=== PATIENT | male | born 1930 | race Caucasian/White ===

== ENCOUNTER 2017-03-26 09:32 | Inpatient (IN) | payer MEDICARE, OTHER ==
[2017-03-26] MEDS: AZITHROMYCIN 500MG/NS (PMX) 250 ML IV (10:58)
[2017-03-26] MEDS: METHYLPREDNISOLONE 125 MG INJ IV ×2 (10:58→17:45)
[2017-03-26] MEDS: IPRATROPIUM (NEB) 0.5 MG/2.5 ML AMP INH (11:17)
[2017-03-26] MEDS: ALBUTEROL 0.083% (NEB) 2.5 MG/3 ML AMP HHN (11:17)
[2017-03-26 11:24] LABS: ADD MAN DIFF? NO
[2017-03-26 11:37] LABS: ABNORMAL IP MESSAGE 1; BASOPHILS % 0.1 % (0.0-2.0); EOSINOPHILS % 0.2 % (0.0-7.0); HEMATOCRIT 37.1 % (42.0-52.0); LYMPHOCYTES # 1.9 10^3/ul (0.8-2.9); LYMPHOCYTES % 11.7 % (15.0-51.0); MEAN CORPUSCULAR HEMOGLOBIN 31.9 pg (29.0-33.0); MEAN CORPUSCULAR HGB CONC 32.3 g/dl (32.0-37.0); MEAN CORPUSCULAR VOLUME 98.7 fl (82.0-101.0); MEAN PLATELET VOLUME 13.3 fl (7.4-10.4); MONOCYTE # 1.2 10^3/ul (0.3-0.9); MONOCYTES % 7.1 % (0.0-11.0); NEUTROPHIL # 13.2 10^3/ul (1.6-7.5); NEUTROPHILS % 80.2 % (39.0-77.0); PLATELET COUNT 92 10^3/UL (140-415); POSITIVE DIFF @See below; RED BLOOD COUNT 3.76 10^6/ul (4.70-6.10); RED CELL DISTRIBUTION WIDTH 13.2 % (11.5-14.5)
[2017-03-26 11:37] LABS: WHITE BLOOD COUNT 16.5 10^3/ul (4.8-10.8)
[2017-03-26 11:51] LABS: LACTIC ACID 1.2 mmol/L (0.5-2.0)
[2017-03-26 11:54] LABS: ANION GAP 16 (8-16); BLOOD UREA NITROGEN 56 mg/dl (7-20); CALCIUM 8.9 mg/dl (8.4-10.2); CARBON DIOXIDE 30 mmol/L (21-31); CHLORIDE 101 mmol/L (97-110); CREATININE 1.78 mg/dl (0.61-1.24); GLUCOSE 215 mg/dl (70-220); POTASSIUM 4.8 mmol/L (3.5-5.1); SODIUM 142 mmol/L (135-144)
[2017-03-26] MEDS ORDERED: ONDANSETRON 4 MG INJ IV ×2 (13:00→14:00)
[2017-03-26] MEDS ORDERED: ACETAMINOPHEN 325 MG TAB PO ×2 (13:00→14:00)
[2017-03-26 13:53] LABS: LACTIC ACID 0.9 mmol/L (0.5-2.0)
[2017-03-26] MEDS ORDERED: GLUCOSE GEL 15 GRAM TUBE BUCCAL (14:00)
[2017-03-26] MEDS ORDERED: DEXTROSE 50% 50 ML SYRINGE IV ×2 (14:00)
[2017-03-26] MEDS: ALBUTEROL/IPRATROPIUM (NEB) 3 ML AMP HHN ×3 (14:00→22:52)
[2017-03-26] MEDS ORDERED: NACL 0.9% 3 ML SYG IV (14:00)
[2017-03-26] MEDS ORDERED: HYDROCODONE/APAP (5/325) TAB PO (14:00)
[2017-03-26] MEDS ORDERED: GLUCOSE GEL 15 GRAM TUBE PO ×2 (14:00)
[2017-03-26] MEDS ORDERED: LORAZEPAM 0.5 MG TAB PO (14:00)
[2017-03-26] MEDS ORDERED: morphine 2 MG INJ IV (14:00)
[2017-03-26] MEDS ORDERED: GLUCAGON 1 MG INJ IM (14:00)
[2017-03-26] MEDS: OSELTAMIVIR 75 MG CAP PO ×2 (14:00→20:36)
[2017-03-26 14:47] LABS: B-TYPE NATRIURETIC PEPTIDE 1080 PG/ML (0-450)
[2017-03-26] MEDS: FUROSEMIDE 40 MG INJ IV (15:22)
[2017-03-26 15:26] LABS: LACTIC ACID 1.2 mmol/L (0.5-2.0)
[2017-03-26] MEDS: GUAIFENESIN/CODEINE 5ML CUP PO (15:26)
[2017-03-26] MEDS: [UNRECOGNIZED DRUG - OTHER] IM* (16:30)
[2017-03-26] MEDS: FUROSEMIDE 40 MG TAB PO (17:45)
[2017-03-26] MEDS: INSULIN ASPART [NOVOLOG] 3 ML PEN SC ×3 (17:50→22:26)
[2017-03-26] MEDS: INFLUENZA VIRUS VACCINE 0.5 ML SYG IM* (18:46)
[2017-03-26 19:49] LABS: CREATINE KINASE 106 IU/L (23-200)
[2017-03-26 20:03] LABS: CK INDEX 1.4; CK-MB 1.52 ng/ml (0.0-2.4); TROPONIN-I 0.022 ng/ml (0.00-0.12)
[2017-03-26] MEDS: BRIMONIDINE 0.2%-TIMOLOL 0.5% 5ML OPH BOTH EYES (20:35)
[2017-03-26] MEDS: DORZOLAMIDE/TIMOLOL 10 ML OPH BOTH EYES (20:36)
[2017-03-26] MEDS: ATORVASTATIN 40 MG TAB PO (20:36)
[2017-03-26] MEDS: INSULIN GLARGINE [LANtus] 3 ML PEN SC (20:49)
[2017-03-26] MEDS: LATANOPROST 0.005% 2.5 ML OPH BOTH EYES (21:48)
[2017-03-27 01:20] LABS: CREATINE KINASE 88 IU/L (23-200)
[2017-03-27 01:33] LABS: CK INDEX 1.7; TROPONIN-I 0.034 ng/ml (0.00-0.12)
[2017-03-27 01:34] LABS: CK-MB 1.53 ng/ml (0.0-2.4)
[2017-03-27] MEDS: METHYLPREDNISOLONE 125 MG INJ IV ×2 (02:36→08:26)
[2017-03-27] MEDS: ACCU-CHEK XX (02:38)
[2017-03-27] MEDS: hydrALAzine 20 MG INJ IV (03:26)
[2017-03-27 06:20] LABS: ADD MAN DIFF? NO
[2017-03-27] MEDS: GUAIFENESIN/CODEINE 5ML CUP PO ×2 (06:21→11:58)
[2017-03-27] MEDS: FUROSEMIDE 40 MG TAB PO (06:24)
[2017-03-27 06:25] LABS: ABNORMAL IP MESSAGE 1; BASOPHILS % 0.2 % (0.0-2.0); HEMATOCRIT 39.3 % (42.0-52.0); HEMOGLOBIN 12.7 g/dl (14.0-18.0); LYMPHOCYTES # 1.7 10^3/ul (0.8-2.9); LYMPHOCYTES % 9.2 % (15.0-51.0); MEAN CORPUSCULAR HEMOGLOBIN 31.9 pg (29.0-33.0); MEAN CORPUSCULAR HGB CONC 32.3 g/dl (32.0-37.0); MEAN CORPUSCULAR VOLUME 98.7 fl (82.0-101.0); MEAN PLATELET VOLUME 13.8 fl (7.4-10.4); MONOCYTE # 0.5 10^3/ul (0.3-0.9); MONOCYTES % 2.9 % (0.0-11.0); NEUTROPHIL # 16.2 10^3/ul (1.6-7.5); NEUTROPHILS % 86.8 % (39.0-77.0); PLATELET COUNT 116 10^3/UL (140-415); POSITIVE DIFF @See below; RED BLOOD COUNT 3.98 10^6/ul (4.70-6.10); RED CELL DISTRIBUTION WIDTH 13.2 % (11.5-14.5)
[2017-03-27 06:25] LABS: WHITE BLOOD COUNT 18.7 10^3/ul (4.8-10.8)
[2017-03-27 07:11] LABS: CREATINE KINASE 81 IU/L (23-200)
[2017-03-27 07:17] LABS: CK INDEX 2.5; TROPONIN-I 0.034 ng/ml (0.00-0.12)
[2017-03-27 07:18] LABS: ALANINE AMINOTRANSFERASE 35 IU/L (13-69); ALBUMIN 4.2 g/dl (3.3-4.9); ALBUMIN/GLOBULIN RATIO 1.05; ALKALINE PHOSPHATASE 27 IU/L (42-121); ANION GAP 20 (8-16); ASPARTATE AMINO TRANSFERASE 40 IU/L (15-46); BILIRUBIN,INDIRECT 0.7 mg/dl (0-1.1); BILIRUBIN,TOTAL 0.7 mg/dl (0.2-1.3); BLOOD UREA NITROGEN 65 mg/dl (7-20); CALCIUM 9.3 mg/dl (8.4-10.2); CARBON DIOXIDE 31 mmol/L (21-31); CHLORIDE 101 mmol/L (97-110); CHOL/HDL RATIO 5.5 RATIO; CHOLESTEROL 132 mg/dl (100-200); CREATININE 2.14 mg/dl (0.61-1.24); GLUCOSE 219 mg/dl (70-220); HDL CHOLESTEROL 24 mg/dl (31-75); LDL CHOLESTEROL,CALCULATED 93 mg/dl; MAGNESIUM 2.8 mg/dl (1.7-2.5); SODIUM 147 mmol/L (135-144); TOTAL PROTEIN 8.2 g/dl (6.1-8.1); TRIGLYCERIDES 75 mg/dl (0-149)
[2017-03-27 07:22] LABS: CK-MB 2.03 ng/ml (0.0-2.4)
[2017-03-27] MEDS: ALBUTEROL/IPRATROPIUM (NEB) 3 ML AMP HHN ×3 (07:48→19:36)
[2017-03-27 08:00] LABS: PHOSPHORUS 3.5 mg/dl (2.5-4.9)
[2017-03-27 08:14] LABS: THYROID STIMULATING HORMONE 0.352 MIU/L (0.465-4.680)
[2017-03-27] MEDS: SPIRONOLACTONE 25 MG TAB PO (08:27)
[2017-03-27] MEDS: BRIMONIDINE 0.2%-TIMOLOL 0.5% 5ML OPH BOTH EYES ×2 (08:27→21:40)
[2017-03-27] MEDS: DORZOLAMIDE/TIMOLOL 10 ML OPH BOTH EYES ×2 (08:27→21:41)
[2017-03-27] MEDS: OSELTAMIVIR 75 MG CAP PO ×2 (08:27→21:39)
[2017-03-27] MEDS: ASPIRIN (EC) 81 MG TAB PO (08:27)
[2017-03-27] MEDS ORDERED: FUROSEMIDE 40 MG TAB PO (09:00)
[2017-03-27] MEDS ORDERED: AMLODIPINE 5 MG TAB PO (09:00)
[2017-03-27] MEDS: INSULIN ASPART [NOVOLOG] 3 ML PEN SC ×7 (09:36→22:04)
[2017-03-27] MEDS: AZITHROMYCIN 500MG/NS (PMX) 250 ML IVPB (15:25)
[2017-03-27] MEDS: METHYLPREDNISOLONE 40 MG INJ IV ×2 (15:25→21:45)
[2017-03-27] MEDS: FUROSEMIDE 40 MG INJ IV (19:17)
[2017-03-27] MEDS: BISACODYL (EC) 5 MG TAB PO (21:39)
[2017-03-27] MEDS: ATORVASTATIN 40 MG TAB PO (21:39)
[2017-03-27] MEDS: LATANOPROST 0.005% 2.5 ML OPH BOTH EYES (21:41)
[2017-03-27] MEDS: INSULIN GLARGINE [LANtus] 3 ML PEN SC (22:04)
[2017-03-28] MEDS: ACCU-CHEK XX ×2 (01:58→14:30)
[2017-03-28] MEDS: METHYLPREDNISOLONE 40 MG INJ IV (06:22)
[2017-03-28] MEDS: FUROSEMIDE 40 MG INJ IV (06:25)
[2017-03-28 06:30] LABS: ABNORMAL IP MESSAGE 1; HEMATOCRIT 36.4 % (42.0-52.0); HEMOGLOBIN 11.9 g/dl (14.0-18.0); MEAN CORPUSCULAR HEMOGLOBIN 32.2 pg (29.0-33.0); MEAN CORPUSCULAR HGB CONC 32.7 g/dl (32.0-37.0); MEAN CORPUSCULAR VOLUME 98.6 fl (82.0-101.0); MEAN PLATELET VOLUME 13.8 fl (7.4-10.4); PLATELET COUNT 127 10^3/UL (140-415); POSITIVE DIFF @See below; RED BLOOD COUNT 3.69 10^6/ul (4.70-6.10); RED CELL DISTRIBUTION WIDTH 13.2 % (11.5-14.5)
[2017-03-28 06:30] LABS: WHITE BLOOD COUNT 29.5 10^3/ul (4.8-10.8)
[2017-03-28 07:12] LABS: ADD MAN DIFF? YES
[2017-03-28 07:20] LABS: ANION GAP 18 (8-16)
[2017-03-28 07:41] LABS: BLOOD UREA NITROGEN 83 mg/dl (7-20); CALCIUM 9.1 mg/dl (8.4-10.2); CARBON DIOXIDE 29 mmol/L (21-31); CHLORIDE 102 mmol/L (97-110); CREATININE 2.24 mg/dl (0.61-1.24); GLUCOSE 204 mg/dl (70-220); MAGNESIUM 2.7 mg/dl (1.7-2.5); PHOSPHORUS 5.4 mg/dl (2.5-4.9); POTASSIUM 4.6 mmol/L (3.5-5.1); SODIUM 144 mmol/L (135-144)
[2017-03-28] MEDS: ALBUTEROL/IPRATROPIUM (NEB) 3 ML AMP HHN ×3 (08:08→20:38)
[2017-03-28] MEDS: ASPIRIN (EC) 81 MG TAB PO (08:16)
[2017-03-28] MEDS: DORZOLAMIDE/TIMOLOL 10 ML OPH BOTH EYES ×2 (08:16→21:10)
[2017-03-28] MEDS: BRIMONIDINE 0.2%-TIMOLOL 0.5% 5ML OPH BOTH EYES ×2 (08:16→21:10)
[2017-03-28] MEDS: OSELTAMIVIR 75 MG CAP PO ×2 (08:16→08:23)
[2017-03-28] MEDS: SPIRONOLACTONE 25 MG TAB PO (08:16)
[2017-03-28] MEDS: INSULIN ASPART [NOVOLOG] 3 ML PEN SC ×8 (08:20→21:00)
[2017-03-28] MEDS ORDERED: INSULIN ASPART [NOVOLOG] 3 ML PEN SC ×4 (12:15→18:00)
[2017-03-28 12:53] LABS: GLUCOSE 569 mg/dl (70-220)
[2017-03-28] MEDS ORDERED: DEXTROSE 50% 50 ML SYRINGE IV ×2 (14:30)
[2017-03-28] MEDS ORDERED: INSULIN HUMAN REGULAR 100 UNIT in SOD CHLORIDE 0.9% 99 ML IV (14:30)
[2017-03-28] MEDS: Insulin NOVOLOG SS MODERATE Algorithm(NPO/TPN/ENTERAL FEEDS) SC (15:12)
[2017-03-28] MEDS: LINAGLIPTIN 5 MG TABLET PO (15:43)
[2017-03-28] MEDS: predniSONE 20 MG TAB PO (15:43)
[2017-03-28] MEDS: NITROGLYCERIN (SL) 0.4 MG TAB SL (15:44)
[2017-03-28] MEDS ORDERED: LINAGLIPTIN 5 MG TABLET PO (16:00)
[2017-03-28 17:11] LABS: TROPONIN-I 0.018 ng/ml (0.00-0.12)
[2017-03-28] MEDS: PIPER-TAZO 3.375 GM IV (PMX) 50 ML IVPB ×2 (17:31→22:08)
[2017-03-28] MEDS ORDERED: INSULIN GLARGINE [LANtus] 3 ML PEN SC (20:00)
[2017-03-28] MEDS ORDERED: METHYLPREDNISOLONE 40 MG INJ IV (21:00)
[2017-03-28] MEDS: BISACODYL (EC) 5 MG TAB PO (21:09)
[2017-03-28] MEDS: ATORVASTATIN 40 MG TAB PO (21:09)
[2017-03-28] MEDS: LATANOPROST 0.005% 2.5 ML OPH BOTH EYES (21:10)
[2017-03-28] MEDS: INSULIN GLARGINE [LANtus] 3 ML PEN SC (21:18)
[2017-03-29 00:03] LABS: ADD UMIC NO; UR ASCORBIC ACID NEGATIVE (NEGATIVE); UR BILIRUBIN (Dip) NEGATIVE (NEGATIVE); UR BLOOD (Dip) NEGATIVE (NEGATIVE); UR CLARITY CLEAR (CLEAR); UR COLOR YELLOW (YELLOW); UR GLUCOSE (Dip) 1+ mg/dL (NEGATIVE); UR KETONES (Dip) NEGATIVE (NEGATIVE); UR LEUKOCYTE ESTERASE (Dip) NEGATIVE Leu/ul (NEGATIVE); UR NITRITE (Dip) NEGATIVE (NEGATIVE); UR SPECIFIC GRAVITY (Dip) 1.017 (1.003-1.030); UR TOTAL PROTEIN (Dip) NEGATIVE (NEGATIVE); UR UROBILINOGEN (Dip) NEGATIVE (NEGATIVE)
[2017-03-29] MEDS: ACCU-CHEK XX (01:56)
[2017-03-29] MEDS ORDERED: ACCU-CHEK XX (02:00)
[2017-03-29 06:04] LABS: ABNORMAL IP MESSAGE 1; HEMATOCRIT 36.4 % (42.0-52.0); HEMOGLOBIN 11.9 g/dl (14.0-18.0); MEAN CORPUSCULAR HEMOGLOBIN 32.2 pg (29.0-33.0); MEAN CORPUSCULAR HGB CONC 32.7 g/dl (32.0-37.0); MEAN CORPUSCULAR VOLUME 98.4 fl (82.0-101.0); MEAN PLATELET VOLUME 13.7 fl (7.4-10.4); PLATELET COUNT 143 10^3/UL (140-415); POSITIVE DIFF @See below; RED CELL DISTRIBUTION WIDTH 13.2 % (11.5-14.5)
[2017-03-29 06:04] LABS: WHITE BLOOD COUNT 30.3 10^3/ul (4.8-10.8)
[2017-03-29] MEDS: PIPER-TAZO 3.375 GM IV (PMX) 50 ML IVPB ×3 (06:07→21:07)
[2017-03-29 06:15] LABS: ADD MAN DIFF? YES
[2017-03-29 06:18] LABS: TROPONIN-I 0.018 ng/ml (0.00-0.12)
[2017-03-29 06:23] LABS: ANION GAP 18 (8-16); BLOOD UREA NITROGEN 88 mg/dl (7-20); CALCIUM 8.8 mg/dl (8.4-10.2); CARBON DIOXIDE 29 mmol/L (21-31); CHLORIDE 102 mmol/L (97-110); CREATININE 2.24 mg/dl (0.61-1.24); GLUCOSE 109 mg/dl (70-220); MAGNESIUM 2.6 mg/dl (1.7-2.5); PHOSPHORUS 4.3 mg/dl (2.5-4.9); POTASSIUM 4.7 mmol/L (3.5-5.1); SODIUM 144 mmol/L (135-144)
[2017-03-29] MEDS: ALBUTEROL/IPRATROPIUM (NEB) 3 ML AMP HHN ×3 (07:44→20:38)
[2017-03-29] MEDS: LINAGLIPTIN 5 MG TABLET PO (08:15)
[2017-03-29] MEDS: INSULIN ASPART [NOVOLOG] 3 ML PEN SC ×8 (08:15→21:15)
[2017-03-29] MEDS: DORZOLAMIDE/TIMOLOL 10 ML OPH BOTH EYES ×2 (08:15→21:08)
[2017-03-29] MEDS: ASPIRIN (EC) 81 MG TAB PO (08:16)
[2017-03-29] MEDS: predniSONE 20 MG TAB PO (08:16)
[2017-03-29] MEDS: BRIMONIDINE 0.2%-TIMOLOL 0.5% 5ML OPH BOTH EYES ×2 (08:16→21:08)
[2017-03-29 10:47] LABS: BAND NEUTROPHILS % (M) 10 % (0-4); GIANT THROMBO% (M) 2 % (0-0); LYMPHOCYTES #M 0.3 10^3/ul (0.8-2.9); LYMPHOCYTES % (M) 1 % (15-51); MONOCYTE #M 1.8 10^3/ul (0.3-0.9); MONOCYTES % (M) 6 % (0-11); PLATELET ESTIMATE DECREASED; POLYCHROMASIA 1+ (0-0); REACTIVE LYMPHOCYTES #M 1.5 10^3/ul (0.0-0.0); REACTIVE LYMPHOCYTES% (M) 5 % (0-0); SEG NEUT #M 24.5 10^3/ul (1.7-7.5); SEGMENTED NEUTROPHILS (M) % 78 % (39-77)
[2017-03-29] MEDS: LATANOPROST 0.005% 2.5 ML OPH BOTH EYES (21:08)
[2017-03-29] MEDS: INSULIN GLARGINE [LANtus] 3 ML PEN SC (21:10)
[2017-03-29] MEDS: ATORVASTATIN 40 MG TAB PO (21:12)
[2017-03-30] MEDS: ACCU-CHEK XX (01:56)
[2017-03-30 05:37] LABS: ADD MAN DIFF? NO
[2017-03-30 05:45] LABS: WHITE BLOOD COUNT 20.9 10^3/ul (4.8-10.8)
[2017-03-30 05:45] LABS: ABNORMAL IP MESSAGE 1; BASOPHIL # 0.1 10^3/ul (0.0-0.1); BASOPHILS % 0.2 % (0.0-2.0); HEMATOCRIT 38.9 % (42.0-52.0); HEMOGLOBIN 12.6 g/dl (14.0-18.0); LYMPHOCYTES # 2.1 10^3/ul (0.8-2.9); LYMPHOCYTES % 10.1 % (15.0-51.0); MEAN CORPUSCULAR HGB CONC 32.4 g/dl (32.0-37.0); MEAN CORPUSCULAR VOLUME 98.7 fl (82.0-101.0); MEAN PLATELET VOLUME 13.4 fl (7.4-10.4); MONOCYTE # 1.8 10^3/ul (0.3-0.9); MONOCYTES % 8.5 % (0.0-11.0); NEUTROPHIL # 16.2 10^3/ul (1.6-7.5); NEUTROPHILS % 77.9 % (39.0-77.0); PLATELET COUNT 142 10^3/UL (140-415); POSITIVE DIFF @See below; RED BLOOD COUNT 3.94 10^6/ul (4.70-6.10); RED CELL DISTRIBUTION WIDTH 13.2 % (11.5-14.5)
[2017-03-30 06:18] LABS: ANION GAP 16 (8-16); BLOOD UREA NITROGEN 81 mg/dl (7-20); CARBON DIOXIDE 31 mmol/L (21-31); CHLORIDE 103 mmol/L (97-110); CREATININE 2.17 mg/dl (0.61-1.24); GLUCOSE 131 mg/dl (70-220); MAGNESIUM 2.9 mg/dl (1.7-2.5); PHOSPHORUS 5.1 mg/dl (2.5-4.9); POTASSIUM 4.5 mmol/L (3.5-5.1); SODIUM 145 mmol/L (135-144)
[2017-03-30] MEDS: PIPER-TAZO 3.375 GM IV (PMX) 50 ML IVPB ×3 (06:29→22:28)
[2017-03-30] MEDS ORDERED: predniSONE 10 MG TAB (07:57)
[2017-03-30] MEDS: INSULIN ASPART [NOVOLOG] 3 ML PEN SC ×5 (08:15→20:51)
[2017-03-30] MEDS: ALBUTEROL/IPRATROPIUM (NEB) 3 ML AMP HHN ×3 (08:23→21:01)
[2017-03-30] MEDS: LINAGLIPTIN 5 MG TABLET PO (08:50)
[2017-03-30] MEDS: ASPIRIN (EC) 81 MG TAB PO (08:50)
[2017-03-30] MEDS: DORZOLAMIDE/TIMOLOL 10 ML OPH BOTH EYES ×2 (08:50→20:44)
[2017-03-30] MEDS: predniSONE 10 MG TAB PO (08:50)
[2017-03-30] MEDS: BRIMONIDINE 0.2%-TIMOLOL 0.5% 5ML OPH BOTH EYES ×2 (08:50→20:44)
[2017-03-30] MEDS: ATORVASTATIN 40 MG TAB PO (20:44)
[2017-03-30] MEDS: LATANOPROST 0.005% 2.5 ML OPH BOTH EYES (20:44)
[2017-03-30] MEDS: INSULIN GLARGINE [LANtus] 3 ML PEN SC (20:51)
[2017-03-31] MEDS: ACCU-CHEK XX (01:56)
[2017-03-31] MEDS: PIPER-TAZO 3.375 GM IV (PMX) 50 ML IVPB (05:05)
[2017-03-31 06:03] LABS: ADD MAN DIFF? NO
[2017-03-31 06:11] LABS: WHITE BLOOD COUNT 17.2 10^3/ul (4.8-10.8)
[2017-03-31 06:11] LABS: ABNORMAL IP MESSAGE 1; BASOPHIL # 0.1 10^3/ul (0.0-0.1); BASOPHILS % 0.5 % (0.0-2.0); EOSINOPHILS # 0.2 10^3/ul (0.0-0.5); EOSINOPHILS % 0.9 % (0.0-7.0); HEMATOCRIT 38.2 % (42.0-52.0); HEMOGLOBIN 12.2 g/dl (14.0-18.0); LYMPHOCYTES # 2.3 10^3/ul (0.8-2.9); LYMPHOCYTES % 13.5 % (15.0-51.0); MEAN CORPUSCULAR HEMOGLOBIN 31.8 pg (29.0-33.0); MEAN CORPUSCULAR HGB CONC 31.9 g/dl (32.0-37.0); MEAN CORPUSCULAR VOLUME 99.5 fl (82.0-101.0); MONOCYTES % 11.3 % (0.0-11.0); NEUTROPHIL # 11.6 10^3/ul (1.6-7.5); NEUTROPHILS % 67.1 % (39.0-77.0); PLATELET COUNT 154 10^3/UL (140-415); POSITIVE DIFF @See below; RED BLOOD COUNT 3.84 10^6/ul (4.70-6.10); RED CELL DISTRIBUTION WIDTH 13.2 % (11.5-14.5)
[2017-03-31 06:41] LABS: ANION GAP 16 (8-16); BLOOD UREA NITROGEN 70 mg/dl (7-20); CALCIUM 8.6 mg/dl (8.4-10.2); CARBON DIOXIDE 30 mmol/L (21-31); CHLORIDE 105 mmol/L (97-110); CREATININE 2.01 mg/dl (0.61-1.24); GLUCOSE 87 mg/dl (70-220); MAGNESIUM 2.9 mg/dl (1.7-2.5); PHOSPHORUS 4.9 mg/dl (2.5-4.9); POTASSIUM 4.3 mmol/L (3.5-5.1); SODIUM 147 mmol/L (135-144)
[2017-03-31 07:34] LABS: BAND NEUTROPHILS #M 1.3 10^3/ul (0.0-0.6); BAND NEUTROPHILS % (M) 8 % (0-4); EOSINOPHILS % (M) 1 % (0-7); GIANT THROMBO% (M) 2 % (0-0); LYMPHOCYTES #M 2.4 10^3/ul (0.8-2.9); LYMPHOCYTES % (M) 14 % (15-51); MONOCYTE #M 1.5 10^3/ul (0.3-0.9); MONOCYTES % (M) 9 % (0-11); PLATELET ESTIMATE NORMAL; POLYCHROMASIA 3+ (0-0); REACTIVE LYMPHOCYTES #M 0.3 10^3/ul (0.0-0.0); REACTIVE LYMPHOCYTES% (M) 2 % (0-0); SEG NEUT #M 11.6 10^3/ul (1.7-7.5); SEGMENTED NEUTROPHILS (M) % 66 % (39-77); SMUDGE%M 2 % (0-0)
[2017-03-31] MEDS: ALBUTEROL/IPRATROPIUM (NEB) 3 ML AMP HHN (09:10)
[2017-03-31] MEDS: ASPIRIN (EC) 81 MG TAB PO (09:43)
[2017-03-31] MEDS: predniSONE 20 MG TAB PO (09:43)
[2017-03-31] MEDS: LINAGLIPTIN 5 MG TABLET PO (09:43)
[2017-03-31] MEDS: DORZOLAMIDE/TIMOLOL 10 ML OPH BOTH EYES (09:43)
[2017-03-31] MEDS: BRIMONIDINE 0.2%-TIMOLOL 0.5% 5ML OPH BOTH EYES (09:43)
[2017-03-31] MEDS: INSULIN ASPART [NOVOLOG] 3 ML PEN SC (09:43)
== END 2017-03-31 11:32 | disposition home or self-care (01) | DRG 291 ==
LOC: E/R 09:32 → MS2 12:55
DX: I13.0 Hypertensive heart and chronic kidney disease with heart failure and stage 1 through stage 4 chronic kidney disease, or unspecified chronic kidney disease (principal); I50.33 Acute on chronic diastolic (congestive) heart failure; N17.9 Acute kidney failure, unspecified; E11.22 Type 2 diabetes mellitus with diabetic chronic kidney disease; E11.65 Type 2 diabetes mellitus with hyperglycemia; J44.1 Chronic obstructive pulmonary disease with (acute) exacerbation; N18.9 Chronic kidney disease, unspecified; I25.10 Atherosclerotic heart disease of native coronary artery without angina pectoris; D72.829 Elevated white blood cell count, unspecified; R00.1 Bradycardia, unspecified; R09.02 Hypoxemia; Z99.81 Dependence on supplemental oxygen; Z91.14 Patient's other noncompliance with medication regimen
CPT/HCPCS: 36415; 71045; 71046; 71250; 76775; 80048; 80053; 80061; 81003; 82550; 82553; 82947; 82962; 83605; 83735; 83880; 84100; 84443; 84484; 85025; 87040; 87400; 90662; 90686; 93005; 93306; 94640; 94664; 96374; 96375; 97165; 97535; 99285-25

== ENCOUNTER 2017-04-23 09:53 | Inpatient (IN) | payer MEDICARE, OTHER ==
[2017-04-23 12:39] LABS: ADD MAN DIFF? NO
[2017-04-23 12:45] LABS: BASOPHIL # 0.1 10^3/ul (0.0-0.1); BASOPHILS % 0.5 % (0.0-2.0); EOSINOPHILS # 0.4 10^3/ul (0.0-0.5); EOSINOPHILS % 3.8 % (0.0-7.0); HEMATOCRIT 36.6 % (42.0-52.0); HEMOGLOBIN 11.3 g/dl (14.0-18.0); LYMPHOCYTES # 2.4 10^3/ul (0.8-2.9); MEAN CORPUSCULAR HEMOGLOBIN 31.8 pg (29.0-33.0); MEAN CORPUSCULAR HGB CONC 30.9 g/dl (32.0-37.0); MEAN CORPUSCULAR VOLUME 103.1 fl (82.0-101.0); MEAN PLATELET VOLUME 12.1 fl (7.4-10.4); MONOCYTE # 0.9 10^3/ul (0.3-0.9); MONOCYTES % 9.8 % (0.0-11.0); NEUTROPHIL # 5.4 10^3/ul (1.6-7.5); NEUTROPHILS % 58.5 % (39.0-77.0); PLATELET COUNT 136 10^3/UL (140-415); RED BLOOD COUNT 3.55 10^6/ul (4.70-6.10); RED CELL DISTRIBUTION WIDTH 14.2 % (11.5-14.5)
[2017-04-23 12:45] LABS: WHITE BLOOD COUNT 9.2 10^3/ul (4.8-10.8)
[2017-04-23 13:08] LABS: INR 1.05; PROTIME 13.8 Sec (11.9-14.9); PT RATIO 1.1
[2017-04-23 13:09] LABS: PARTIAL THROMBOPLASTIN TIME 28.6 Sec (25.0-35.0)
[2017-04-23 13:15] LABS: ALANINE AMINOTRANSFERASE 39 IU/L (13-69); ALBUMIN 3.9 g/dl (3.3-4.9); ALBUMIN/GLOBULIN RATIO 1.08; ALKALINE PHOSPHATASE 24 IU/L (42-121); ANION GAP 14 (8-16); ASPARTATE AMINO TRANSFERASE 33 IU/L (15-46); BILIRUBIN,INDIRECT 0.6 mg/dl (0-1.1); BILIRUBIN,TOTAL 0.6 mg/dl (0.2-1.3); BLOOD UREA NITROGEN 28 mg/dl (7-20); CALCIUM 9.5 mg/dl (8.4-10.2); CARBON DIOXIDE 34 mmol/L (21-31); CHLORIDE 102 mmol/L (97-110); CREATININE 1.66 mg/dl (0.61-1.24); POTASSIUM 4.1 mmol/L (3.5-5.1); SODIUM 146 mmol/L (135-144); TOTAL PROTEIN 7.5 g/dl (6.1-8.1)
[2017-04-23] MEDS: CLINDAMYCIN 900 MG/D5W (PMX) 50 ML IVPB (13:20)
[2017-04-23 13:22] LABS: GLUCOSE 44 mg/dl (70-220)
[2017-04-23 13:27] LABS: B-TYPE NATRIURETIC PEPTIDE 675 PG/ML (0-450)
[2017-04-23 13:28] LABS: TROPONIN-I < 0.012 ng/ml (0.00-0.12)
[2017-04-23 13:31] LABS: LACTIC ACID 0.8 mmol/L (0.5-2.0)
[2017-04-23 14:02] LABS: LACTIC ACID 1.3 mmol/L (0.5-2.0)
[2017-04-23] MEDS: DEXTROSE 50% 50 ML SYRINGE IV (14:15)
[2017-04-23] MEDS: FUROSEMIDE 40 MG INJ IV (14:25)
[2017-04-23] MEDS ORDERED: ONDANSETRON 4 MG INJ IV ×2 (14:30→16:00)
[2017-04-23] MEDS ORDERED: ACETAMINOPHEN 325 MG TAB PO (14:30)
[2017-04-23 16:29] LABS: LACTIC ACID 2.3 mmol/L (0.5-2.0)
[2017-04-23] MEDS: SOD CHLORIDE 0.9% 1,000 ML IV (16:41)
[2017-04-23 17:22] LABS: AADO2 Arterial 34.3 mmHg (7.0-24.0); Allen Test ACCEPTAB; Arterial Base Excess 8.8 mmol/L (-3.0-3); Arterial Blood Gas Oxygen Sat 96.5 mmHG (95.0-100.0); Arterial COHb 0.6 % (0.0-3.0); Arterial Fraction of Oxyhgb 95.6 % (93.0-99.0); Arterial HCO3 35.9 mmol/L (22.0-26.0); Arterial MetHb 0.3 % (0.0-1.5); Arterial Total Hemglobin 11.5 g/dl (12.0-18.0); Arterial pCO2 62.6 mmhg (35-45); MODE NASAL CANNULA; Site Left Radial
[2017-04-23] MEDS: INSULIN ASPART [NOVOLOG] 3 ML PEN SC ×2 (17:58→21:00)
[2017-04-23 19:10] LABS: LACTIC ACID 0.6 mmol/L (0.5-2.0)
[2017-04-23] MEDS ORDERED: NON-FORMULARY/PATIENT OWN MED (Rosuvastatin Calcium* (Crestor*) 10 MG) XX (21:00)
[2017-04-23] MEDS: CLINDAMYCIN 600 MG/D5W (PMX) 50 ML IVPB (21:58)
[2017-04-23] MEDS: INSULIN GLARGINE [LANtus] 3 ML PEN SC (21:59)
[2017-04-23] MEDS: ATORVASTATIN 10 MG TAB PO (22:01)
[2017-04-23] MEDS: DOCUSATE SODIUM 100 MG CAP PO (22:01)
[2017-04-23] MEDS: DORZOLAMIDE/TIMOLOL 10 ML OPH BOTH EYES (23:54)
[2017-04-23] MEDS: BRIMONIDINE 0.2%-TIMOLOL 0.5% 5ML OPH BOTH EYES (23:55)
[2017-04-23] MEDS: LATANOPROST 0.005% 2.5 ML OPH BOTH EYES (23:55)
[2017-04-24 01:59] LABS: LACTIC ACID 1.2 mmol/L (0.5-2.0)
[2017-04-24] MEDS: ACCU-CHEK XX (02:00)
[2017-04-24] MEDS ORDERED: ACETAMINOPHEN 325 MG TAB PO (03:00)
[2017-04-24] MEDS: CLINDAMYCIN 600 MG/D5W (PMX) 50 ML IVPB ×2 (07:40→14:48)
[2017-04-24] MEDS: INSULIN ASPART [NOVOLOG] 3 ML PEN SC ×4 (08:00→22:46)
[2017-04-24] MEDS: ASPIRIN (EC) 81 MG TAB PO (08:29)
[2017-04-24] MEDS: BRIMONIDINE 0.2%-TIMOLOL 0.5% 5ML OPH BOTH EYES ×2 (08:29→22:25)
[2017-04-24] MEDS: DORZOLAMIDE/TIMOLOL 10 ML OPH BOTH EYES ×2 (08:29→22:26)
[2017-04-24] MEDS: DOCUSATE SODIUM 100 MG CAP PO ×2 (08:30→22:26)
[2017-04-24 11:36] LABS: ADD MAN DIFF? NO
[2017-04-24 11:48] LABS: WHITE BLOOD COUNT 8.5 10^3/ul (4.8-10.8)
[2017-04-24 11:48] LABS: BASOPHILS % 0.2 % (0.0-2.0); EOSINOPHILS # 0.2 10^3/ul (0.0-0.5); EOSINOPHILS % 2.7 % (0.0-7.0); HEMATOCRIT 34.4 % (42.0-52.0); HEMOGLOBIN 10.6 g/dl (14.0-18.0); LYMPHOCYTES # 1.9 10^3/ul (0.8-2.9); LYMPHOCYTES % 21.9 % (15.0-51.0); MEAN CORPUSCULAR HEMOGLOBIN 31.8 pg (29.0-33.0); MEAN CORPUSCULAR HGB CONC 30.8 g/dl (32.0-37.0); MEAN CORPUSCULAR VOLUME 103.3 fl (82.0-101.0); MEAN PLATELET VOLUME 12.2 fl (7.4-10.4); MONOCYTE # 0.8 10^3/ul (0.3-0.9); MONOCYTES % 9.3 % (0.0-11.0); NEUTROPHIL # 5.5 10^3/ul (1.6-7.5); NEUTROPHILS % 65.1 % (39.0-77.0); PLATELET COUNT 123 10^3/UL (140-415); RED BLOOD COUNT 3.33 10^6/ul (4.70-6.10); RED CELL DISTRIBUTION WIDTH 14.1 % (11.5-14.5)
[2017-04-24 12:15] LABS: LACTIC ACID 1.7 mmol/L (0.5-2.0)
[2017-04-24 12:22] LABS: ANION GAP 14 (8-16); BLOOD UREA NITROGEN 24 mg/dl (7-20); CALCIUM 9.3 mg/dl (8.4-10.2); CARBON DIOXIDE 33 mmol/L (21-31); CHLORIDE 102 mmol/L (97-110); CHOL/HDL RATIO 4.2 RATIO; CHOLESTEROL 114 mg/dl (100-200); CREATININE 1.49 mg/dl (0.61-1.24); GLUCOSE 178 mg/dl (70-220); HDL CHOLESTEROL 27 mg/dl (31-75); LDL CHOLESTEROL,CALCULATED 67 mg/dl; MAGNESIUM 1.9 mg/dl (1.7-2.5); SODIUM 144 mmol/L (135-144); TRIGLYCERIDES 102 mg/dl (0-149)
[2017-04-24] MEDS ORDERED: ALBUTEROL/IPRATROPIUM (NEB) 3 ML AMP HHN (12:30)
[2017-04-24] MEDS: FUROSEMIDE 40 MG INJ IV (12:33)
[2017-04-24 13:23] LABS: FOLATE > 20.0 ng/ml (2.8-20.0)
[2017-04-24] MEDS: FUROSEMIDE 20 MG INJ IV (17:20)
[2017-04-24] MEDS: LATANOPROST 0.005% 2.5 ML OPH BOTH EYES (22:26)
[2017-04-24] MEDS: ATORVASTATIN 10 MG TAB PO (22:27)
[2017-04-24] MEDS: INSULIN GLARGINE [LANtus] 3 ML PEN SC (22:45)
[2017-04-25] MEDS: CLINDAMYCIN 600 MG/D5W (PMX) 50 ML IVPB ×3 (00:01→16:34)
[2017-04-25] MEDS: ACCU-CHEK XX (02:00)
[2017-04-25] MEDS: INSULIN ASPART [NOVOLOG] 3 ML PEN SC ×4 (08:15→22:55)
[2017-04-25] MEDS: FUROSEMIDE 20 MG INJ IV ×2 (08:17→21:46)
[2017-04-25] MEDS: BRIMONIDINE 0.2%-TIMOLOL 0.5% 5ML OPH BOTH EYES ×2 (08:17→21:47)
[2017-04-25] MEDS: DOCUSATE SODIUM 100 MG CAP PO ×2 (08:17→21:46)
[2017-04-25] MEDS: ASPIRIN (EC) 81 MG TAB PO (08:17)
[2017-04-25] MEDS: DORZOLAMIDE/TIMOLOL 10 ML OPH BOTH EYES ×2 (08:17→21:47)
[2017-04-25 10:13] LABS: ADD MAN DIFF? NO
[2017-04-25 10:19] LABS: BASOPHIL # 0.1 10^3/ul (0.0-0.1); BASOPHILS % 0.6 % (0.0-2.0); EOSINOPHILS # 0.3 10^3/ul (0.0-0.5); EOSINOPHILS % 3.8 % (0.0-7.0); HEMATOCRIT 34.1 % (42.0-52.0); HEMOGLOBIN 10.3 g/dl (14.0-18.0); LYMPHOCYTES # 2.3 10^3/ul (0.8-2.9); LYMPHOCYTES % 27.2 % (15.0-51.0); MEAN CORPUSCULAR HEMOGLOBIN 30.9 pg (29.0-33.0); MEAN CORPUSCULAR HGB CONC 30.2 g/dl (32.0-37.0); MEAN CORPUSCULAR VOLUME 102.4 fl (82.0-101.0); MEAN PLATELET VOLUME 12.4 fl (7.4-10.4); MONOCYTE # 0.8 10^3/ul (0.3-0.9); MONOCYTES % 9.8 % (0.0-11.0); NEUTROPHIL # 4.8 10^3/ul (1.6-7.5); PLATELET COUNT 135 10^3/UL (140-415); RED BLOOD COUNT 3.33 10^6/ul (4.70-6.10); RED CELL DISTRIBUTION WIDTH 14.1 % (11.5-14.5)
[2017-04-25 10:19] LABS: WHITE BLOOD COUNT 8.5 10^3/ul (4.8-10.8)
[2017-04-25 10:37] LABS: HEMOGLOBIN A1C 6.2 % (0-5.9)
[2017-04-25 10:40] LABS: ANION GAP 12 (8-16); BLOOD UREA NITROGEN 30 mg/dl (7-20); CALCIUM 8.9 mg/dl (8.4-10.2); CARBON DIOXIDE 35 mmol/L (21-31); CHLORIDE 99 mmol/L (97-110); GLUCOSE 176 mg/dl (70-220); POTASSIUM 4.2 mmol/L (3.5-5.1); SODIUM 142 mmol/L (135-144)
[2017-04-25] MEDS: ATORVASTATIN 10 MG TAB PO (21:46)
[2017-04-25] MEDS: LATANOPROST 0.005% 2.5 ML OPH BOTH EYES (21:47)
[2017-04-25] MEDS: INSULIN GLARGINE [LANtus] 3 ML PEN SC (21:55)
[2017-04-26] MEDS: CLINDAMYCIN 600 MG/D5W (PMX) 50 ML IVPB ×2 (00:36→08:18)
[2017-04-26] MEDS: ACCU-CHEK XX (02:00)
[2017-04-26] MEDS: FUROSEMIDE 20 MG INJ IV (08:00)
[2017-04-26] MEDS: INSULIN ASPART [NOVOLOG] 3 ML PEN SC ×2 (08:15→12:15)
[2017-04-26] MEDS: ASPIRIN (EC) 81 MG TAB PO (08:18)
[2017-04-26] MEDS: DOCUSATE SODIUM 100 MG CAP PO (08:19)
[2017-04-26] MEDS: BRIMONIDINE 0.2%-TIMOLOL 0.5% 5ML OPH BOTH EYES (08:19)
[2017-04-26] MEDS: DORZOLAMIDE/TIMOLOL 10 ML OPH BOTH EYES (08:19)
[2017-04-26 09:07] LABS: ADD MAN DIFF? NO
[2017-04-26 09:17] LABS: BASOPHIL # 0.1 10^3/ul (0.0-0.1); BASOPHILS % 0.7 % (0.0-2.0); EOSINOPHILS # 0.3 10^3/ul (0.0-0.5); HEMOGLOBIN 10.8 g/dl (14.0-18.0); LYMPHOCYTES # 2.2 10^3/ul (0.8-2.9); LYMPHOCYTES % 26.1 % (15.0-51.0); MEAN CORPUSCULAR HGB CONC 30.9 g/dl (32.0-37.0); MEAN CORPUSCULAR VOLUME 103.6 fl (82.0-101.0); MEAN PLATELET VOLUME 12.9 fl (7.4-10.4); MONOCYTES % 11.2 % (0.0-11.0); NEUTROPHIL # 4.8 10^3/ul (1.6-7.5); NEUTROPHILS % 56.2 % (39.0-77.0); PLATELET COUNT 146 10^3/UL (140-415); RED BLOOD COUNT 3.38 10^6/ul (4.70-6.10); RED CELL DISTRIBUTION WIDTH 13.8 % (11.5-14.5)
[2017-04-26 09:17] LABS: WHITE BLOOD COUNT 8.5 10^3/ul (4.8-10.8)
[2017-04-26 09:43] LABS: ANION GAP 13 (8-16); BLOOD UREA NITROGEN 33 mg/dl (7-20); CALCIUM 9.1 mg/dl (8.4-10.2); CARBON DIOXIDE 36 mmol/L (21-31); CHLORIDE 99 mmol/L (97-110); CREATININE 1.72 mg/dl (0.61-1.24); GLUCOSE 87 mg/dl (70-220); SODIUM 144 mmol/L (135-144)
[2017-04-26] MEDS: LINAGLIPTIN 5 MG TABLET PO (12:20)
== END 2017-04-26 13:35 | disposition home or self-care (01) | DRG 602 ==
LOC: MS2 04-25 02:29 → E/R 09:53 → PP2 14:27 → MS4 18:25
DX: L03.116 Cellulitis of left lower limb (principal); I50.33 Acute on chronic diastolic (congestive) heart failure; N17.9 Acute kidney failure, unspecified; I13.0 Hypertensive heart and chronic kidney disease with heart failure and stage 1 through stage 4 chronic kidney disease, or unspecified chronic kidney disease; N18.3 Chronic kidney disease, stage 3 (moderate); B95.61 Methicillin susceptible Staphylococcus aureus infection as the cause of diseases classified elsewhere; L03.115 Cellulitis of right lower limb; E11.22 Type 2 diabetes mellitus with diabetic chronic kidney disease; E78.5 Hyperlipidemia, unspecified; J44.9 Chronic obstructive pulmonary disease, unspecified; E11.51 Type 2 diabetes mellitus with diabetic peripheral angiopathy without gangrene; I87.2 Venous insufficiency (chronic) (peripheral); R00.1 Bradycardia, unspecified; D53.9 Nutritional anemia, unspecified; D63.1 Anemia in chronic kidney disease; I25.10 Atherosclerotic heart disease of native coronary artery without angina pectoris; I70.203 Unspecified atherosclerosis of native arteries of extremities, bilateral legs; Z79.4 Long term (current) use of insulin; Z87.891 Personal history of nicotine dependence; I25.2 Old myocardial infarction; Z98.61 Coronary angioplasty status; Z79.82 Long term (current) use of aspirin
CPT/HCPCS: 36415; 36600; 71045; 80048; 80053; 80061; 82607; 82746; 82803; 82962; 83036; 83605; 83735; 83880; 84484; 85025; 85610; 85730; 87040; 87081; 93005; 93922; 93970; 96372; 96374; 99217; 99285-25; G0378; J1940

== ENCOUNTER 2017-11-05 06:44 | Day surgery (SDC) | payer MEDICARE, OTHER ==
[2017-11-05] MEDS ORDERED: PROPOFOL 40 ML (07:25)
[2017-11-05] MEDS ORDERED: LIDOCAINE 100 MG SYRINGE (07:25)
== END 2017-11-05 11:35 | disposition home or self-care (01) ==
LOC: GIL 06:44
DX: K29.70 Gastritis, unspecified, without bleeding (principal); E11.9 Type 2 diabetes mellitus without complications; J44.9 Chronic obstructive pulmonary disease, unspecified; I25.10 Atherosclerotic heart disease of native coronary artery without angina pectoris; I73.9 Peripheral vascular disease, unspecified
CPT/HCPCS: 43239; 82962